=== PATIENT | male | born 1975 | race African-American/Black ===

== ENCOUNTER 2022-04-09 13:56 | Inpatient (IN) | payer SELFPAY ==
[~2022-04-09] VITALS: Ht 175.3 cm; Wt 77.0 kg
--- NOTE | 2022-04-09 14:06 | PHYS DOC ---
Past Medical History Past Medical History: Seizure General Adult EDM: Chief Complaint: SEIZURE HPI: HPI: Patient is a 47 year old male with history of seizures presented to the ED today for to be evaluated after having a seizure. Patient was donating plasma and it is reported he had a seizure. Patient is still confused right now,we are not able to get a good history. EMS denies patient falling or hitting his head Review of Systems: Review of Systems: Constitutional: Denies fever or chills. [] Eyes: Denies change in visual acuity. [] HENT: Denies nasal congestion or sore throat. [] Respiratory: Denies cough or shortness of breath. [] Cardiovascular: Denies chest pain or edema. [] GI: Denies abdominal pain, nausea, vomiting, bloody stools or diarrhea. [] : Denies dysuria. [] Musculoskeletal: Denies back pain or joint pain. [] Integument: Denies rash. [] Neurologic: Reports seizure. Denies headache, focal weakness or sensory changes. [] Psychiatric: Denies depression or anxiety. [] Heart Score: C/O Chest Pain: N/A Risk Factors: Risk Factors: DM, Current or recent (<one month) smoker, HTN, HLP, family history of CAD, obesity. Risk Scores: Score 0 - 3: 2.5% MACE over next 6 weeks - Discharge Home Score 4 - 6: 20.3% MACE over next 6 weeks - Admit for Clinical Observation Score 7 - 10: 72.7% MACE over next 6 weeks - Early Invasive Strategies Physical Exam: PE: Constitutional: Well developed, well nourished, no acute distress, non-toxic appearance. [] HENT: Normocephalic, atraumatic, bilateral external ears normal, oropharynx moist, no oral exudates, nose normal. [] Eyes: PERRLA, EOMI, conjunctiva normal, no discharge. [] Neck: Normal range of motion, no tenderness, supple, no stridor. [] Cardiovascular:Heart rate regular rhythm, no murmur [] Lungs & Thorax: Bilateral breath sounds clear to auscultation [] Abdomen: Bowel sounds normal, soft, no tenderness, no masses, no pulsatile masses. [] Skin: Warm, dry, no erythema, no rash. [] Back: No tenderness, no CVA tenderness. [] Extremities: No tenderness, no cyanosis, no clubbing, ROM intact, no edema. [] Neurologic: Alert and oriented X 1, normal motor function, normal sensory function, no focal deficits noted. Cranial nerves II through XII intact Psychologic: Affect normal, judgement normal, mood normal. [] EKG: EK interpreted by Dr. Mckenzie sinus rhythm heart rate 91 no STEMI [] Radiology/Procedures: Radiology/Procedures: []PROCEDURE: PORTABLE CHEST 1V EXAM: Chest, single view. HISTORY: Seizure. COMPARISON: None. FINDINGS: A frontal view of the chest is obtained. There is no infiltrate, pleur al effusion or pneumothorax. The heart is normal in size. IMPRESSION: No acute pulmonary finding. Electronically signed by: Angelique Burns MD (04/09/2022 2:51 PM) [id number] DICTATED and SIGNED BY: ANGELIQUE BURNS MD DATE: 04/09/221450 Course & Med Decision Making: Course & Med Decision Making Pertinent Labs and Imaging studies reviewed. (See chart for details) This a 47-year-old male patient presented to the ED today to be evaluated after having a seizure while donating plasma. Patient has a history of seizures. Currently not on any medicines. He was postictal on arrival to the ED. Vitals on arrival to the ED blood pressure was 58/37, heart rate 92, temperature 97.9, O2 sats 97% on room air. Patient was given 2 L of fluids. Blood pressure came up to 120/70 with a heart rate in the 90s. CBC with a WBC 11.6, CMP with CO2 of 11, anion gap 26, BUN 15, creatinine 2.0, glucose 154, magnesium 2.7. Lactic 16.3, troponin 4, TSH 5.087. EKG is negative, chest x-ray is negative [id number] patient requested to leave AMA. He is alert oriented x4 and able to make his own decisions. Dr. Gerard had seen patient. Patient was given the risk of leaving AMA including and disability. He states he understands the risk. He signed out AGAINST MEDICAL ADVICE. Dragon Disclaimer: Cherelle Disclaimer: This electronic medical record was generated, in whole or in part, using a voice recognition dictation system. Departure Departure Impression: Primary Impression: Seizure Additional Impressions: Lactic acidosis Acute renal failure Qualified Codes: N17.9 - Acute kidney failure, unspecified Disposition: 07 LEFT AGAINST MEDICAL ADVICE Condition: STABLE BARBARA PROCTOR EDUCATIONAL DIRECTOR April 09, 2022 14:06
[2022-04-09] MEDS ORDERED: IV NORMAL SALINE 1000ML BAG 1,000 ML IV ONE ×3 (14:30→16:30)
[2022-04-09] MEDS ORDERED: levETIRAcetam 1,000mg PREMIX 100 ML IV ONE (14:30)
[2022-04-09 14:31] LABS: BASO # 0.2 x10^3/uL (0.0-0.2); BASO % 1 % (0-3); EOS # 0.6 x10^3/uL (0.0-0.7); EOS % 6 % (0-3); HEMATOCRIT 42.4 % (39.0-53.0); HEMOGLOBIN 13.7 g/dL (13.0-17.5); LYMPH # 4.5 x10^3/uL (1.0-4.8); LYMPH % 39 % (24-48); MEAN CORPUSCULAR HEMOGLOBIN 29 pg (25-35); MEAN CORPUSCULAR HGB CONC 32 g/dL (31-37); MEAN CORPUSCULAR VOLUME 89 fL (79-100); MONO # 1.1 x10^3/uL (0.0-1.1); MONO % 9 % (0-9); NEUT # 5.2 x10^3/uL (1.8-7.7); NEUT % 45 % (31-73); PLATELET COUNT 272 x10^3/uL (140-400); RED BLOOD COUNT 4.74 x10^6/uL (4.30-5.70); WHITE BLOOD COUNT 11.6 x10^3/uL (4.0-11.0)
--- NOTE | 2022-04-09 14:33 | EKG ---
[facility] [address] [place] [address] Test Date: 2022-04-09 Test Time: 14:00:32 Pat Name: MICKI WEINBERG Department: Room: Gender: M Rn X Ray: : 1975 Requested By: BARBARA PROCTOR Order Number: [id number] Reading MD: Jai Antoine Measurements Intervals [place] Rate: 91 P: 90 GA: 116 QRS: 67 QRSD: 82 T: 46 QT: 368 QTc: 454 Interpretive Statements SINUS RHYTHM NORMAL ECG RI6.01 No previous ECG available for comparison Electronically Signed On 04-11-2022 10:08:30 CDT by Jai Antoine
[2022-04-09 14:51] LABS: ALBUMIN 3.3 g/dL (3.4-5.0); ALBUMIN/GLOBULIN RATIO 1.3 (1.0-1.7); CALCIUM 8.8 mg/dL (8.5-10.1); GFR 36.1; MAGNESIUM 2.7 mg/dL (1.8-2.4); POTASSIUM 4.7 mmol/L (3.5-5.1); TOTAL BILIRUBIN 0.2 mg/dL (0.2-1.0); TOTAL PROTEIN 5.9 g/dL (6.4-8.2)
--- NOTE | 2022-04-09 14:54 | RAD ---
EXAM: Chest, single view. HISTORY: Seizure. COMPARISON: None. FINDINGS: A frontal view of the chest is obtained. There is no infiltrate, pleural effusion or pneumo thorax. The heart is normal in size. IMPRESSION: No acute pulmonary finding. Electronically signed by: Angelique Hurley MD (04/09/2022 2:51 PM) [id number]
--- NOTE | 2022-04-09 17:23 | PDOC1 ---
History and Physical Date of Service: DOS: DATE: 04/09/22 TIME: 17:21 History of Present Illness: HPI: 47 year old male with history of seizures presented to the ED today for to be evaluated after having a seizure. Patient was donating plasma and it is reported he had a seizure episode. Patient is still confused right now,we are not able to get a good history. EMS denies patient falling or hitting his head Past Medical/Surgical History: PMH/PSH: Past medical history of seizures Allergies: Allergies: Coded Allergies: Unable to Assess (Unverified , 04/09/22) SEIZURE ON ADMIT Family History: Family History: Reviewed with no relative findings in the chart Current Medications: Current Medications Current Medications Sodium Chloride 1,000 ml @ 1,000 mls/hr 1X ONCE IV Last administered on 04/09/22at 14:25; Start 04/09/22 at 14:30; Stop 04/09/22 at 15:29; Status DC Levetiracetam 100 ml @ 400 mls/hr 1X ONCE IV Last administered on 04/09/22at 14:23; Start 04/09/22 at 14:30; Stop 04/09/22 at 14:44; Status DC Sodium Chloride 1,000 ml @ 1,000 mls/hr 1X ONCE IV Last administered on 04/09/22at 14:25; Start 04/09/22 at 14:30; Stop 04/09/22 at 15:29; Status DC Sodium Chloride 1,000 ml @ 1,000 mls/hr 1X ONCE IV ; Start 04/09/22 at 16:30; Stop 04/09/22 at 17:29 ROS: Review of Systems Review of System REVIEW OF SYSTEMS: GENERAL: Denies weakness SKIN: No bruising, hair changes or rashes. EYES: No blurred, double or loss of vision. NOSE AND THROAT: No history of nosebleeds, hoarseness or sore throat. HEART: No history of palpitations, chest pain or shortness of breath on exertion. LUNGS: Denies cough, hemoptysis, wheezing or shortness of breath. GASTROINTESTINAL: Denies changes in appetite, nausea, vomiting, diarrhea or constipation. GENITOURINARY: No history of frequency, urgency, hesitancy or nocturia. NEUROLOGIC: Denies history of numbness, tingling, or tremor. PSYCHIATRIC: No history of panic, anxiety or depression. ENDOCRINE: No history of heat or cold intolerance, polyuria or polydipsia. EXTREMITIES: Denies joint pain, pain on walking or stiffness. Physical Exam: Vital Signs: Vital Signs Date Time Temp Pulse Resp B/P (MAP) Pulse Ox O2 Delivery O2 Flow Rate FiO2 04/09/22 13:56 97.9 92 24 58/37 (44) 97 Room Air 97.9 Physcial Exam: GEN: No apparent distress. Alert and oriented HEENT: Normal cephalic, atraumatic, external auditory canals are patent EYES: Extraocular muscles are intact, pupil are equally round and reactive to light and accommodation MUSCULOSKELETAL: Well developed , well nourished, good range of motion ENDOCRINE: No thyromegaly was palpated LYMPHATICS: No cervical chain or axillary nodes were noted HEMATOPOIETIC: No bruising NECK: Supple, no JVD, no thyromegaly was noted LUNGS: Clear to auscultation in all lung saunders without rhonchi or wheezing HEART: RRR, S!, S2 present. Peripheral pulses intact, no obvious murmurs noted ABDOMEN: Soft, nontender. Positive bowel sounds, no organomegaly, normal bowel sounds EXTREMITIES: Without clubbing, cyanosis, or edema. Pedal pulses intact. Negative Homans sign NEUROLOGIC: Normal speech and tone. A&O x 3, moves all extremities, no obvious focal deficits PSYCHIATRIC: Normal affect, normal mood. Stable SKIN: No ulcerations or rashes, good skin turgor, no jaundice VASCULAR: Good capillary refill, neurovascular bundle appears to be intact Labs: Labs: Laboratory Tests Test 04/09/22 14:19 White Blood Count 11.6 x10^3/uL (4.0-11.0) Red Blood Count 4.74 x10^6/uL (4.30-5.70) Hemoglobin 13.7 g/dL (13.0-17.5) Hematocrit 42.4 % (39.0-53.0) Mean Corpuscular Volume 89 fL (79-100) Mean Corpuscular Hemoglobin 29 pg (25-35) Mean Corpuscular Hemoglobin Concent 32 g/dL (31-37) Red Cell Distribution Width 14.0 % (11.5-14.5) Platelet Count 272 x10^3/uL (140-400) Neutrophils (%) (Auto) 45 % (31-73) Lymphocytes (%) (Auto) 39 % (24-48) Monocytes (%) (Auto) 9 % (0-9) Eosinophils (%) (Auto) 6 % (0-3) Basophils (%) (Auto) 1 % (0-3) Neutrophils # (Auto) 5.2 x10^3/uL (1.8-7.7) Lymphocytes # (Auto) 4.5 x10^3/uL (1.0-4.8) Monocytes # (Auto) 1.1 x10^3/uL (0.0-1.1) Eosinophils # (Auto) 0.6 x10^3/uL (0.0-0.7) Basophils # (Auto) 0.2 x10^3/uL (0.0-0.2) Sodium Level 140 mmol/L (136-145) Potassium Level 4.7 mmol/L (3.5-5.1) Chloride Level 103 mmol/L (98-107) Carbon Dioxide Level 11 mmol/L (21-32) Anion Gap 26 (6-14) Blood Urea Nitrogen 15 mg/dL (8-26) Creatinine 2.0 mg/dL (0.7-1.3) Estimated GFR (Cockcroft-Gault) 36.1 BUN/Creatinine Ratio 8 (6-20) Glucose Level 154 mg/dL (70-99) Lactic Acid Level 16.3 mmol/L (0.4-2.0) Calcium Level 8.8 mg/dL (8.5-10.1) Magnesium Level 2.7 mg/dL (1.8-2.4) Total Bilirubin 0.2 mg/dL (0.2-1.0) Aspartate Amino Transf (AST/SGOT) 17 U/L (15-37) Alanine Aminotransferase (ALT/SGPT) 24 U/L (16-63) Alkaline Phosphatase 51 U/L (46-116) Troponin I High Sensitivity < 4 ng/L (4-75) KQ-Glh-F-Type Natriuretic Peptide 35 pg/mL (0-124) Total Protein 5.9 g/dL (6.4-8.2) Albumin 3.3 g/dL (3.4-5.0) Albumin/Globulin Ratio 1.3 (1.0-1.7) Thyroid Stimulating Hormone (TSH) 5.087 uIU/mL (0.358-3.74) Laboratory Tests Test 04/09/22 14:19 White Blood Count 11.6 x10^3/uL (4.0-11.0) Red Blood Count 4.74 x10^6/uL (4.30-5.70) Hemoglobin 13.7 g/dL (13.0-17.5) Hematocrit 42.4 % (39.0-53.0) Mean Corpuscular Volume 89 fL (79-100) Mean Corpuscular Hemoglobin 29 pg (25-35) Mean Corpuscular Hemoglobin Concent 32 g/dL (31-37) Red Cell Distribution Width 14.0 % (11.5-14.5) Platelet Count 272 x10^3/uL (140-400) Neutrophils (%) (Auto) 45 % (31-73) Lymphocytes (%) (Auto) 39 % (24-48) Monocytes (%) (Auto) 9 % (0-9) Eosinophils (%) (Auto) 6 % (0-3) Basophils (%) (Auto) 1 % (0-3) Neutrophils # (Auto) 5.2 x10^3/uL (1.8-7.7) Lymphocytes # (Auto) 4.5 x10^3/uL (1.0-4.8) Monocytes # (Auto) 1.1 x10^3/uL (0.0-1.1) Eosinophils # (Auto) 0.6 x10^3/uL (0.0-0.7) Basophils # (Auto) 0.2 x10^3/uL (0.0-0.2) Sodium Level 140 mmol/L (136-145) Potassium Level 4.7 mmol/L (3.5-5.1) Chloride Level 103 mmol/L (98-107) Carbon Dioxide Level 11 mmol/L (21-32) Anion Gap 26 (6-14) Blood Urea Nitrogen 15 mg/dL (8-26) Creatinine 2.0 mg/dL (0.7-1.3) Estimated GFR (Cockcroft-Gault) 36.1 BUN/Creatinine Ratio 8 (6-20) Glucose Level 154 mg/dL (70-99) Lactic Acid Level 16.3 mmol/L (0.4-2.0) Calcium Level 8.8 mg/dL (8.5-10.1) Magnesium Level 2.7 mg/dL (1.8-2.4) Total Bilirubin 0.2 mg/dL (0.2-1.0) Aspartate Amino Transf (AST/SGOT) 17 U/L (15-37) Alanine Aminotransferase (ALT/SGPT) 24 U/L (16-63) Alkaline Phosphatase 51 U/L (46-116) Troponin I High Sensitivity < 4 ng/L (4-75) UC-Epd-E-Type Natriuretic Peptide 35 pg/mL (0-124) Total Protein 5.9 g/dL (6.4-8.2) Albumin 3.3 g/dL (3.4-5.0) Albumin/Globulin Ratio 1.3 (1.0-1.7) Thyroid Stimulating Hormone (TSH) 5.087 uIU/mL (0.358-3.74) Images: Images PROCEDURE: PORTABLE CHEST 1V EXAM: Chest, single view. HISTORY: Seizure. COMPARISON: None. FINDINGS: A frontal view of the chest is obtained. There is no infiltrate, pleural effusion or pneumothorax. The heart is normal in size. IMPRESSION: No acute pulmonary finding. Assessment/Plan Assessment/Plan Acute seizures Anion gap metabolic acidosis Lactic acidosis MENDEZ due to vasomotor nephropathy Justifications for Admission Other Justification STEVEN HOYT MD April 09, 2022 17:22
[2022-04-09] MEDS ORDERED: ACETAMINOPHEN 325 MG TABLET. PO PRN (17:45)
[2022-04-09] MEDS ORDERED: ONDANSETRON PF 4 MG/2 ML VIAL. IVP PRN (17:45)
[2022-04-09] MEDS ORDERED: MORPHINE SULFATE 2 MG/ML INJ. IVP PRN (17:45)
[2022-04-09 18:10] VITALS: BP 120/70
[2022-04-09] MEDS ORDERED: levETIRAcetam 1,000mg PREMIX 100 ML IV SCH (21:00)
== END 2022-04-09 20:10 | disposition left against medical advice (07) | DRG 101 ==
LOC: ER 13:56 → 5 NORTH 18:12
PROVIDERS: ADMIT Internal Medicine; ATTEND Internal Medicine
DX: R56.9 Unspecified convulsions (principal); E87.2 Acidosis; N17.9 Acute kidney failure, unspecified; Z53.29 Procedure and treatment not carried out because of patient's decision for other reasons
CPT/HCPCS: 36415; 71045; 80053; 83605; 83735; 83880; 84443; 84484; 85025; 93005; 96365; J7030; 99285-25; G0378